=== PATIENT | female | born 1960 | race Caucasian/White ===

== ENCOUNTER → 2017-02-11 | Outpatient (CLI) | payer OTHER | LOC: FIMAGING 12:36 | PROVIDERS: ATTEND Internal Medicine Hematology & Oncology | DX: Z12.31 Encounter for screening mammogram for malignant neoplasm of breast (principal); Z85.3 Personal history of malignant neoplasm of breast; Z90.11 Acquired absence of right breast and nipple | CPT/HCPCS: G0202-52 ==

== ENCOUNTER → 2018-02-19 | Outpatient (CLI) | payer OTHER | LOC: FIMAGING 15:52 | PROVIDERS: ATTEND Internal Medicine Hematology & Oncology | DX: Z12.31 Encounter for screening mammogram for malignant neoplasm of breast (principal); Z90.11 Acquired absence of right breast and nipple; Z85.3 Personal history of malignant neoplasm of breast ==